=== PATIENT | male | born 1975 | race African-American/Black ===

== ENCOUNTER 2017-03-28 01:24 | Emergency (ER) | payer SELFPAY ==
[~2017-03-28] VITALS: Ht 162.6 cm; Wt 70.0 kg
[~2017-03-28 01:24] MED LIST: SULF1TAB47 PO; TRAM50 PO; Z.0.NO CURRENT MEDS
[2017-03-28 01:25] VITALS: BP 158/99; PULSE 69; RESP 16; TEMP 98.6; O2SAT 99
[2017-03-28] MEDS ORDERED: AMOXICILLIN 875 MG TAB PO ONE (02:15)
[2017-03-28] MEDS ORDERED: IBUPROFEN 800 MG TAB PO ONE (02:15)
[2017-03-28] MEDS ORDERED: IBUP800T23 PO (02:19)
[2017-03-28] MEDS ORDERED: AMOX875T PO (02:19)
--- NOTE | 2017-03-28 02:19 | PD ---
HPI Chief Complaint: Oral / Dental Pain or Problem Time Seen by Provider: 02:10 Travel History International Travel<30 days: No Contact w/Intl Traveler<30days: No Traveled to known affect area: No History of Present Illness HPI Patient is a 41-year-old male presenting to emergency for evaluation of right upper tooth pain. Patient states his symptoms have been ongoing for 2 days. He reports biting down on something while eating 2 days ago, subsequently causing the pain. Took 2 hydrocodone 2 hours ago. He denies any fever, chills , nausea, vomiting, headache or neck pain. He denies any significant past medical history. Patient states he knows he has dental disease and needs to have his teeth evaluated. [facility] Past Medical History Medical History: Denies Significant Hx Diminished Hearing: No Past Surgical History Surgical History: No Previous Surgery Social History Alcohol Use: No Tobacco Use: Yes (1/2 PACK/DAY) Substance Use: No Allergies-Medications (Allergen,Severity, Reaction): Coded Allergies: No Known Allergies (Verified , 03/28/17) Reported Meds & Prescriptions Reported Meds & Active Scripts Active No Active Prescriptions or Reported Medications Review of Systems Except as stated in HPI: all other systems reviewed are Neg HENT: Positive: Dental Difficulties Physical Exam Narrative GENERAL: Well developed, well nourished male, resting in no acute distress. SKIN: Warm and dry. HEAD: Normocephalic. MOUTH: Mucous membranes moist, no lesions, tongue appears normal. There is mild edema noted to the right upper lateral gumline at the third molar. No fluctuance noted on palpation. No exudates noted. Patient has multiple dental caries throughout his mouth. EYES: No scleral icterus. No injection or drainage. NECK: Supple, trachea midline. No JVD or lymphadenopathy. CARDIOVASCULAR: Regular rate and rhythm without murmurs, gallops, or rubs. RESPIRATORY: Breath sounds equal bilaterally. No accessory muscle use. GASTROINTESTINAL: Abdomen soft, non-tender, nondistended. MUSCULOSKELETAL: No cyanosis, or edema. BACK: Nontender without obvious deformity. No CVA tenderness. Data Data Last Documented VS Vital Signs Date Time Temp Pulse Resp B/P Pulse Ox O2 Delivery O2 Flow Rate FiO2 03/28/17 01:25 98.6 69 16 158/99 99 Room Air Orders Amoxicillin (Trimox) (03/28/17 02:15) Ibuprofen (Motrin) (03/28/17 02:15) MDM Medical Decision Making Medical Screen Exam Complete: Yes Emergency Medical Condition: Yes Interpretation(s) Vital Signs Date Time Temp Pulse Resp B/P Pulse Ox O2 Delivery O2 Flow Rate FiO2 03/28/17 01:25 98.6 69 16 158/99 99 Room Air Differential Diagnosis Dentalgia versus dental abscess versus dental caries versus other Narrative Course Patient's 41-year-old male presenting to emergency for evaluation of right upper tooth pain that started 2 days ago. Upon physical examination patient is noted to have multiple dental caries throughout his mouth. There is mild swelling noted to the lateral upper gumline on the right. Patient will be given dose of antibiotics now as well as a prescription to complete full course of antibiotic therapy at home. He was advised that he will need to see a dentist for further evaluation and management. He verbalized understanding of these instructions. Abrasion is stable for discharge. Diagnosis Primary Impression: Dental abscess Additional Impression: Dental caries Referrals: Dentist 3 days Patient Instructions: Dental Abscess (GEN), Dental Caries (ED), General Instructions Additional Instructions: Follow-up with a dentist for further evaluation and management Complete full course of antibiotics as prescribed Take ibuprofen as needed and as directed for pain Return to emergency department for any new or worsening symptoms Med/Other Pt SpecificInfo: Prescription(s) given Scripts Ibuprofen 800 Mg [id number] Mg PO Q6HR PRN (PAIN) #40 TAB Ref 0 Prov:Raisa Sal 03/28/17 Amoxicillin 875 Mg [id number] Mg PO BID 10 Days Ref 0 Prov:Raisa Sal 03/28/17 Disposition: 01 DISCHARGE HOME Condition: Stable Raisa Sla Mar 28, 2017 02:19
== END 2017-03-28 04:30 | disposition home or self-care (01) ==
LOC: NEPD 01:24
DX: K04.7 Periapical abscess without sinus (principal); K02.9 Dental caries, unspecified; F17.210 Nicotine dependence, cigarettes, uncomplicated
CPT/HCPCS: 99283

== ENCOUNTER 2018-02-20 01:03 | Emergency (ER) | payer SELFPAY ==
[~2018-02-20] VITALS: Ht 160 cm; Wt 65.0 kg
[~2018-02-20 01:03] MED LIST changes: +AMOX875T PO; +IBUP1TAB7 PO; -SULF1TAB47 PO; -TRAM50 PO; -Z.0.NO CURRENT MEDS
[2018-02-20 01:13] VITALS: BP 146/82; PULSE 81; RESP 16; TEMP 98.6; O2SAT 100
--- NOTE | 2018-02-20 02:13 | PD ---
HPI Chief Complaint: Medical Clearance Time Seen by Provider: 02:13 Travel History International Travel<30 days: No Contact w/Intl Traveler<30days: No Traveled to known affect area: No History of Present Illness HPI Patient is a 42-year-old male presenting to the emergency department to be tested for HIV and STDs. Patient denies any symptoms. He states that he is trying to make his relationship with his girl better. He states that his girlfriend does not have any symptoms either. [facility] Past Medical History Medical History: Denies Significant Hx Diminished Hearing: No Social History Alcohol Use: No Tobacco Use: Yes (1/2 PACK/DAY) Substance Use: No Allergies-Medications (Allergen,Severity, Reaction): Coded Allergies: No Known Allergies (Verified Adverse Reaction, Unknown, 02/20/18) Reported Meds & Prescriptions Reported Meds & Active Scripts Active No Active Prescriptions or Reported Medications Review of Systems Except as stated in HPI: all other systems reviewed are Neg Physical Exam Narrative GENERAL: Well-developed, well-nourished, alert -[place] male. Presenting in no acute distress. SKIN: Warm and dry. HEAD: Normocephalic. EYES: No scleral icterus. No injection or drainage. NECK: Supple, trachea midline. No JVD or lymphadenopathy. CARDIOVASCULAR: Regular rate and rhythm without murmurs, gallops, or rubs. RESPIRATORY: Breath sounds equal bilaterally. No accessory muscle use. GASTROINTESTINAL: Abdomen soft, non-tender, nondistended. MUSCULOSKELETAL: No cyanosis, or edema. BACK: Nontender without obvious deformity. No CVA tenderness. Data Data Last Documented VS Vital Signs Date Time Temp Pulse Resp B/P (MAP) Pulse Ox O2 Delivery O2 Flow Rate FiO2 02/20/18 01:13 98.6 81 16 146/82 (103) [address] [facility] Medical Decision Making Medical Screen Exam Complete: Yes Emergency Medical Condition: Yes Interpretation(s) Vital Signs Date Time Temp Pulse Resp B/P (MAP) Pulse Ox O2 Delivery O2 Flow Rate FiO2 02/20/18 01:13 98.6 81 16 146/82 (103) 100 Differential Diagnosis Normal examination versus STD screenings versus UTI versus STD versus HIV versus other Narrative Course Patient is a well-appearing 42-year-old male presenting for STD and HIV screening. Patient's vital signs are stable. Patient was advised that we do not screen for STDs or HIV in the emergency department. He was advised to follow up with [facility] or with his primary doctor or at the [facility]. A medical screening exam was performed: At the time of evaluation the presenting medical condition was determined not to be of an emergent nature. The patient was given the option of receiving additional care, but declined. Patient was given options for additional community resources from which to obtain care. The Patient Has Been advised to seek medical attention for their presenting complaint. The patient has been advised to return to the ER at any time if an emergent condition develops. Diagnosis Primary Impression: Encounter for medical screening examination Scripts No Active Prescriptions or Reported Meds Raisa Sal February 20, 2018 02:13
== END 2018-02-20 02:25 | disposition left against medical advice (07) ==
LOC: NEPD 01:03
DX: Z11.3 Encounter for screening for infections with a predominantly sexual mode of transmission (principal)
CPT/HCPCS: 99281

== ENCOUNTER 2018-03-20 16:15 | Emergency (ER) | payer SELFPAY ==
[2018-03-20 16:20] VITALS: BP 127/91; PULSE 87; RESP 16; TEMP 98.4; O2SAT 98
[2018-03-20] MEDS ORDERED: DIFL150T PO (16:29)
[2018-03-20] MEDS ORDERED: CLOTLOT TOPICAL (16:29)
--- NOTE | 2018-03-20 16:33 | PD ---
HPI Chief Complaint: Skin Problem Time Seen by Provider: 16:25 Travel History International Travel<30 days: No Contact w/Intl Traveler<30days: No Traveled to known affect area: No History of Present Illness HPI 42-year-old -[place] male presents emergency department with itchy lesion on the posterior scalp which is been present for the past 2 months. He states it started as a small area and now has expanded. He denies drainage from the area. It is not tender. It is itchy. He has never had anything like it before. He is concerned about possible fungal infection. He has no other complaints. He has no known drug allergies. PFSH Past Medical History Diminished Hearing: No Social History Alcohol Use: No Tobacco Use: Yes (1/2 PACK/DAY) Substance Use: No Allergies-Medications (Allergen,Severity, Reaction): Coded Allergies: No Known Allergies (Verified Adverse Reaction, Unknown, 02/20/18) Reported Meds & Prescriptions Reported Meds & Active Scripts Active Clotrimazole-Betamethasone Topical (Betamethasone/Clotrimazole) 1-0.05% Lotn 1 Applic TOPICAL BID Diflucan (Fluconazole) 150 Mg Tab 150 Mg PO WEEKLY Review of Systems Except as stated in HPI: all other systems reviewed are Neg General / Constitutional: No: Fever Eyes: No: Visual changes HENT: No: Headaches Cardiovascular: No: Chest Pain or Discomfort Respiratory: No: Shortness of Breath Gastrointestinal: No: Abdominal Pain Genitourinary: No: Dysuria Musculoskeletal: No: Pain Skin: Positive Itching, Positive Lesions (See history of present illness), No Rash Neurologic: No: Weakness Psychiatric: No: Depression Endocrine: No: Polydipsia Hematologic/Lymphatic: No: Easy Bruising Physical Exam Narrative GENERAL: Patient is in no acute distress SKIN: Warm and dry. Patient has a well demarcated oblong skin lesion to the posterior scalp consistent with tinea capitis measuring 3" x 2". There is no drainage or signs of cellulitis or folliculitis, or abscess. HEAD: Atraumatic. Normocephalic. EYES: Pupils equal and round. No scleral icterus. No injection or drainage. ENT: No nasal bleeding or discharge. Mucous membranes pink and moist. Pharynx is clear. Airways patent NECK: Trachea midline. Supple without lymphadenopathy per CARDIOVASCULAR: Regular rate and rhythm. RESPIRATORY: No accessory muscle use. Clear to auscultation. Breath sounds equal bilaterally. MUSCULOSKELETAL: Extremities without clubbing, cyanosis, or edema. No obvious deformities. NEUROLOGICAL: Awake and alert. No obvious cranial nerve deficits. Motor grossly within normal limits. Five out of 5 muscle strength in the arms and legs. Normal speech. PSYCHIATRIC: Appropriate mood and affect; insight and judgment normal. Data Data Last Documented VS Vital Signs Date Time Temp Pulse Resp B/P (MAP) Pulse Ox O2 Delivery O2 Flow Rate FiO2 03/20/18 16:20 98.4 87 16 127/91 (103) 98 MDM Medical Decision Making Medical Screen Exam Complete: Yes Emergency Medical Condition: Yes Differential Diagnosis Rash. Atopic dermatitis. Tinea capitis. Narrative Course Patient is felt to have tinea capitis. He will be treated with Diflucan 150 mg weekly for 4 weeks. Patient also given clotrimazole/triamcinolone lotion to be applied to the area twice daily. 30 mL's with 2 refills Patient should follow-up with local primary care physician as needed. Diagnosis Primary Impression: Tinea capitis Patient Instructions: General Instructions, Tinea Capitis (ED) Additional Instructions: Patient is felt to have tinea capitis. He will be treated with Diflucan 150 mg weekly for 4 weeks. Patient also given clotrimazole/triamcinolone lotion to be applied to the area twice daily. 30 mL's with 2 refills Patient should follow-up with local primary care physician as needed. Med/Other Pt SpecificInfo: Prescription(s) given Scripts Clotrimazole-Betamethasone Topical (Clotrimazole-Betamethasone Topical) 1-0.05% Lotn 1 APPLIC TOPICAL BID for Fungal Infection, #30 ML 2 Refills Prov: Hal Garcia MD 03/20/18 Fluconazole (Diflucan) 150 Mg Tab 150 MG PO WEEKLY for Infection, #4 TAB 0 Refills Prov: Hal Garcia MD 03/20/18 Disposition: 01 DISCHARGE HOME Condition: Stable Kirill Castillo Mar 20, 2018 16:33
== END 2018-03-20 16:45 | disposition home or self-care (01) ==
LOC: NEPK 16:15
DX: B35.0 Tinea barbae and tinea capitis (principal); F17.200 Nicotine dependence, unspecified, uncomplicated
CPT/HCPCS: 99283